=== PATIENT | female | born 1970 | race Caucasian/White ===

== ENCOUNTER 2017-03-22 14:50 | Emergency (ER) | payer BC ==
[2017-03-22 15:12] VITALS: BP 138/77; PULSE 58; TEMP 98.3; BMI 32.0
== END 2017-03-22 15:44 | disposition left against medical advice (07) ==
LOC: JER 14:50
DX: Z53.21 Procedure and treatment not carried out due to patient leaving prior to being seen by health care provider (principal)
CPT/HCPCS: 99281-25

== ENCOUNTER 2024-09-09 12:43 | Emergency (ER) | payer BC ==
[2024-09-09 13:11] VITALS: BP 152/94; PULSE 78; RESP 19; TEMP 98.5; BMI 34.7
[2024-09-09 14:45] LABS: HEMATOCRIT 42.3 % (32.4-45.2); HEMOGLOBIN 13.5 GM/dL (10.7-15.3); MCH 26.5 pg (25.7-33.7); WHITE BLOOD COUNT 6.9 K/mm3 (4.0-10.0)
[2024-09-09 14:46] LABS: BASO % 0.6 % (0-2.0); EOS % 3.3 % (0-4.5); MEAN PLT VOLUME 7.9 fl (7.5-11.1); MONO % 7.9 % (3.8-10.2); NEUT % 43.2 % (42.8-82.8); PLATELET COUNT 360 10^3/uL (134-434); RDW 13.7 % (11.6-15.6)
[2024-09-09 15:05] LABS: POTASSIUM 4.7 mmol/L (3.5-5.1)
[2024-09-09 15:09] LABS: CALCIUM 9.7 mg/dL (8.5-10.1)
[2024-09-09 15:13] LABS: CREATININE 0.6 mg/dL (0.55-1.3)
[2024-09-09 15:14] LABS: TOT PROT 8.1 g/dl (6.4-8.2)
[2024-09-09 15:17] LABS: BILIRUBIN,TOTAL 0.4 mg/dL (0.2-1)
== END 2024-09-09 15:49 | disposition home or self-care (01) ==
LOC: JERFT 12:43
DX: U07.1 COVID-19 (principal); M79.10 Myalgia, unspecified site; R50.9 Fever, unspecified; R51.9 Headache, unspecified
CPT/HCPCS: 36415; 71046-TC-FY; 80053; 84484; 85025; 85379; 93005; 93010; 99285-25